=== PATIENT | male | born 1940 | race Caucasian/White ===

== ENCOUNTER 2024-05-16 10:25 | Outpatient (RCR) | payer OTHER, SELFPAY | END 2024-05-25 23:59 | disposition home or self-care (01) | LOC: GPT 10:25 | PROVIDERS: Visit Provider Internal Medicine | DX: M54.59 Other low back pain (principal) | CPT/HCPCS: 97110; 97112; 97140; 97161; 97530 ==

== ENCOUNTER 2024-05-26 06:00 | Outpatient (RCR) | payer OTHER, SELFPAY | END 2024-06-25 23:59 | disposition home or self-care (01) | LOC: GPT 06:00 | PROVIDERS: Visit Provider Internal Medicine | DX: M54.59 Other low back pain (principal) | CPT/HCPCS: 97110; 97112; 97140; 97530 ==

== ENCOUNTER 2024-06-26 06:00 | Outpatient (RCR) | payer OTHER, SELFPAY | END 2024-07-25 23:59 | disposition home or self-care (01) | LOC: GPT 06:00 | PROVIDERS: Visit Provider Internal Medicine | DX: M54.59 Other low back pain (principal) | CPT/HCPCS: 97110; 97112; 97140; 97164; 97530 ==

== ENCOUNTER 2024-07-26 05:00 | Outpatient (RCR) | payer OTHER, SELFPAY | END 2024-08-25 23:59 | disposition home or self-care (01) | LOC: GPT 05:00 | PROVIDERS: Visit Provider Internal Medicine | DX: M54.59 Other low back pain (principal) | CPT/HCPCS: 97110; 97112; 97140; 97530 ==